=== PATIENT | female | born 1990 | race American Indian/Alaskan Native ===

== ENCOUNTER 2017-03-01 09:36 | Emergency (ER) | payer SELFPAY ==
[2017-03-01 11:06] VITALS: BP 115/74
[2017-03-01] MEDS ORDERED: DECADRON IM ONE (11:30)
--- NOTE | 2017-03-01 11:36 | Emergency Department Report ---
ED Rash HPI - HPI Chief Complaint: Skin Rash Stated Complaint: ALLERGIC REACTION Time Seen by Provider: 03/01/17 11:26 Duration: 3 Days Location: Head, Chest, Upper Extremities Suspected Cause: Unknown Rash Symptoms: Yes Itching, Yes Facial Swelling, No Tongue/Oral Swelling, No Breathing Difficulties, No Choking Sensation, No Wheezing/Dyspnea, No Peeling, No Blistering, No Fever, No Lightheaded, No Malaise, No Myalgias Severity: moderate Other History: patient notes that she has a history of eczema but thinks that this may be different. ED Review of Systems ROS: Stated complaint: ALLERGIC REACTION Other details as noted in HPI Constitutional: denies: chills, fever Eyes: denies: eye pain, eye discharge, vision change ENT: denies: ear pain, throat pain Respiratory: denies: cough, shortness of breath, wheezing Cardiovascular: denies: chest pain, palpitations Endocrine: no symptoms reported Gastrointestinal: denies: abdominal pain, nausea, diarrhea Genitourinary: denies: urgency, dysuria, discharge Musculoskeletal: denies: back pain, joint swelling, arthralgia Skin: as per HPI, rash, pruritus. denies: lesions Neurological: denies: headache, weakness, paresthesias Psychiatric: denies: anxiety, depression Hematological/Lymphatic: denies: easy bleeding, easy bruising ED Past Medical Hx - Past Medical History Previous Medical History?: No Additional medical history: allergies, eczema - Surgical History Past Surgical History?: No Additional Surgical History: tonsillectomy - Social History Smoking Status: Never Smoker Substance Use Type: Marijuana - Medications Home Medications: Home Medications Medication Instructions Recorded Confirmed Last Taken Type Cephalexin [Keflex] 500 mg PO TID #30 cap 03/01/17 Unknown Rx predniSONE [Deltasone] 40 mg PO QDAY 5 Days 03/01/17 Unknown Rx Rash Exam - Exam General: Vital signs noted. No distress. Alert and acting appropriately. HEENT: No Periorbital Edema, No Conjuctival Injection, No Chemosis, No Perioral Edema, No Tongue Edema, No Uvular Edema, No Compromised Airway, No Drooling Lungs: Yes Good Air Exchange (Normal Breath Sounds), No Wheezes, No Ronchi, No Stridor, No Cough, No Labored Respirations, No Retractions, No Use of Accessory Muscles, No Other Abnormal Lung Sounds Heart: Yes Regular, No Murmur Skin: Yes Maculopapular Rash, Yes Erythema, Yes Other (raised rash to left cheek , left lower eyelid, left axilla, left lateral chest wall. Facial rash has pustular appearance as well as eczema vs contact dermatitis.), No Urticarial Rash, No Morbilliform rash, No Bulla(e), No Excoriations, No Weeping, No Tenderness, No Edema, No Encrustations Other: Positive: Abdomen Normal, Neurologic Normal, Musculoskeletal Normal ED Course Vital Signs 03/01/17 11:03 Temperature 97.4 F L Pulse Rate 78 Respiratory 17 Rate Blood Pressure 115/74 O2 Sat by Pulse 100 Oximetry ED Medical Decision Making - Medical Decision Making patient is non-toxic and hemodynamically stable. I believe rash is most likely flare up of eczema that is turning into cellulitis on the face. Will start patient on Abx as well as short corse of steroids for treatment. Critical care attestation.: If time is entered above; I have spent that time in minutes in the direct care of this critically ill patient, excluding procedure time. ED Disposition Clinical Impression: Eczema, Contact dermatitis, Cellulitis Disposition: DISCHARGED TO HOME OR SELFCARE Is pt being admited?: No Does the pt Need Aspirin: No Condition: Good Instructions: Cellulitis (ED), Eczema (ED), Contact Dermatitis (ED) Prescriptions: Cephalexin [Keflex] 500 mg PO TID #30 cap predniSONE [Deltasone] 40 mg PO QDAY 5 Days Referrals: PRIMARY MD DALIA [Primary Care Provider] - 3-5 Days SHERIF GUTIERRES MD [Staff Physician] - 3-5 Days Time of Disposition: 11:42
== END 2017-03-01 11:50 | disposition home or self-care (01) ==
LOC: ED 09:36
DX: L30.9 Dermatitis, unspecified (principal); L25.9 Unspecified contact dermatitis, unspecified cause; L03.90 Cellulitis, unspecified
CPT/HCPCS: 96372; 99282; J1100